=== PATIENT | male | born 2000 | race African-American/Black ===

== ENCOUNTER 2022-12-02 05:08 | Emergency (ER) | payer MEDICAID, OTHER ==
[~2022-12-02] VITALS: Ht 177.8 cm; Wt 60.3 kg
[2022-12-02] MEDS ORDERED: FAMOTIDINE/PF INJ 20 MG/2 ML VIAL IV ONE ×2 (05:36→06:00)
[2022-12-02] MEDS ORDERED: ONDANSETRON HCL/PF 4 MG/2 ML VIAL ONE (05:36)
[2022-12-02] MEDS ORDERED: MAG HYDROX/AL HYDROX/SIMETH 30 ML UDC ONE (05:55)
[2022-12-02 05:56] LABS: APPEARANCE,URINE CLEAR (CLEAR); BILIRUBIN,URINE NEGATIVE (NEGATIVE); BLOOD, URINE NEGATIVE Ery/uL (NEGATIVE); COLOR,URINE YELLOW (YELLOW); KETONES,URINE NEGATIVE (NEGATIVE); LEUKOCYTE ESTERASE ,URINE NEGATIVE (NEGATIVE); NITRITE, URINE NEGATIVE (NEGATIVE); PH,URINE 5.5 (5.0-8.0); PROTEIN,URINE NEGATIVE (NEGATIVE); UGLUCOSE NEGATIVE (NEGATIVE); UROBILINOGEN,URINE 0.2 EU/dL (0.2)
[2022-12-02] MEDS ORDERED: IV NS 0.9% 1,000 ML BAG IV ONE (06:00)
[2022-12-02] MEDS ORDERED: ONDANSETRON HCL/PF 4 MG/2 ML VIAL IVP ONE (06:00)
[2022-12-02] MEDS ORDERED: LIDOCAINE VISCOUS 2% UD 15 ML UDC MM ONE (06:00)
[2022-12-02] MEDS ORDERED: MAG HYDROX/AL HYDROX/SIMETH 30 ML UDC PO ONE (06:00)
[2022-12-02 06:21] LABS: ALBUMIN 3.7 g/dL (3.4-5.0); BILIRUBIN,DIRECT 0.1 mg/dL (0.0-0.2); BILIRUBIN,TOTAL 0.4 mg/dL (0.2-1.0); POTASSIUM 3.7 mmol/L (3.5-5.1); TOTAL PROTEIN, SERUM 7.8 g/dL (6.4-8.2)
[2022-12-02 06:26] LABS: BASOPHILS % (AUTO) 0.4 % (0.0-2.0); EOSINOPHILS % (AUTO) 1.1 % (0.0-6.0); HEMATOCRIT 41 % (39-51); LYMPHOCYTES # (AUTO) 0.9 K/uL (0.8-4.8); LYMPHOCYTES % (AUTO) 20.4 % (20.0-44.0); MEAN CORPUSCULAR HEMOGLOBIN 22 PG (26.0-33.0); MEAN CORPUSCULAR HGB CONC 32 g/dl (31.0-36.0); MEAN CORPUSCULAR VOLUME 70 fL (80-96); MONOCYTES # (AUTO) 0.3 K/uL (0.1-1.30); MONOCYTES % (AUTO) 6.9 % (2.0-12.0); NEUTROPHILS # (AUTO) 3.2 K/uL (1.8-8.9); NEUTROPHILS % (AUTO) 71.2 % (43.0-81.0); PLATELET COUNT (AUTO) 265 K/uL (150-450); WHITE BLOOD COUNT (AUTO) 4.4 K/uL (4.3-11.0)
[2022-12-02] MEDS ORDERED: PANT40TA49 PO (06:40)
[2022-12-02] MEDS ORDERED: ONDA4TAB11 PO (06:40)
[2022-12-02 06:55] VITALS: BP 121/69; TEMP 98.2; O2SAT 98
[2022-12-02] MEDS ORDERED: PANTOPRAZOLE 40 MG TABLET.DR PO ONE (07:00)
== END 2022-12-02 06:55 | disposition home or self-care (01) ==
LOC: ER 05:08
DX: R10.13 Epigastric pain (principal); R11.0 Nausea
CPT/HCPCS: 99284; 96374; 96361; 96375; 85025; 80048; 83690; 80076; 81003; 36415; J3490; J2405; J7030